=== PATIENT | male | born 2000 | race Caucasian/White ===

== ENCOUNTER 2021-02-12 11:28 | Emergency (ER) | payer MEDICAID, OTHER ==
[~2021-02-12] VITALS: Ht 182.9 cm; Wt 113.4 kg
[2021-02-12 11:36] VITALS: BP 133/95
== END 2021-02-12 12:49 | disposition home or self-care (01) ==
LOC: ER 11:28
DX: S61.451A Open bite of right hand, initial encounter (principal); L03.011 Cellulitis of right finger; W54.0XXA Bitten by dog, initial encounter; Y93.89 Activity, other specified; Y99.8 Other external cause status; Y92.89 Other specified places as the place of occurrence of the external cause
CPT/HCPCS: 73130